=== PATIENT | male | born 1990 | race Caucasian/White ===

== ENCOUNTER 2024-06-10 06:57 | Day surgery (SDC) | payer BC ==
[~2024-06-10 06:57] MED LIST: LIDOCAINE 1% (10MG/ML) FOR IV START INTRADERMA PRN
[2024-06-10] MEDS: IV FLUID CONTINUATION 1,000 ML IV ONE (07:09)
[2024-06-10 07:21] VITALS: TEMP 97.3
[2024-06-10] MEDS: LACTATED RINGERS 1,000 ML IV SCH (07:23)
[2024-06-10] MEDS ORDERED: PROPOFOL 10 MG/ML 20 ML VIAL IV ONE (07:49)
[2024-06-10] MEDS ORDERED: LIDOCAINE 1% INJ 10MG/ML (20 ML MDV) ONE (07:49)
--- NOTE | 2024-06-10 08:25 | P.PCN ---
Date of Procedure: 06/10/24 Procedure(s) Performed: Brief history: Patient is a pleasant 34-year-old white male scheduled for an elective upper endoscopy as well as colonoscopy as a part of evaluation of intermittent dysphagia to solids for the last 2 years duration. He had 2 episodes of food impaction requiring EGD on an emergency basis and the last one was in September 2022. Procedure performed: Esophagogastroduodenoscopy with biopsy Colonoscopy Preoperative diagnosis: Intermittent dysphagia to solids and 2 episodes of food impaction Change in bowel habits Anesthesia: MAC Procedure: After informed consent was obtained from the patient was brought into the endoscopy unit and IV sedation was administered by anesthesia under continuous monitoring. Initially upper endoscopy was done. The Olympus GF 160 video endoscope was inserted inserted into the mouth and esophagus intubated without any difficulty and was gradually advanced into the stomach and duodenum and carefully examined. The bulb and second part of the duodenum appeared normal. The scope was then withdrawn into the stomach adequately insufflated with air and upon careful examination the antrum and body, cardia and fundus appeared normal. The scope was then withdrawn into the esophagus. Hiatal hernia noted. The GE junction was located at 40 cm to the incisors. There were linear erosions or ulcerations in the distal esophagus extending from 30 to 40 cm from the incisors consistent with LA grade B reflux esophagitis. There was an early esophageal stricture at the GE junction noted. The mucosa in the mid esophagus had multiple superficial mucosal rings suspicious for eosinophilic esophagitis and biopsies were done from this area. Rest of the esophagus appeared normal and the patient tolerated procedure well. At this time the patient continued to remain sedation. Initial digital rectal examination was normal. Olympus CF 160 video colonoscope was then inserted into the rectum and gradually advanced to the cecum without any difficulty. Careful examination was performed as the scope was gradually being withdrawn. The prep was excellent. The cecum, ascending colon, transverse colon, descending colon, sigmoid colon and rectum appeared normal. Retroflexion was performed in the rectum and no lesions were noted. Patient tolerated the procedure well. Impression: 1. Upper endoscopy revealed linear erosions with 1 superficial ulceration in the distal esophagus consistent with LA grade D reflux esophagitis and early distal esophageal stricture. Small hiatal hernia and some circumferential mucosal rings in the mid esophagus suspicious for eosinophilic esophagitis s/p multiple biopsies 2. Colonoscopy was within normal limits with no evidence of colorectal neoplasia Recommendations: Findings of this examination were discussed with the patient as well as family. He was advised to increase omeprazole to 20 mg twice daily and follow antireflux measures. Follow-up in the office in 2 to 3 weeks. Recommended repeat screening colonoscopy at age 45
[2024-06-10 08:50] VITALS: BP 104/53; PULSE 67; RESP 17
== END 2024-06-10 09:18 | disposition home or self-care (01) ==
LOC: ORWHC2ENDO 06:57
PROVIDERS: ATTEND Internal Medicine Gastroenterology
DX: K22.10 Ulcer of esophagus without bleeding (principal); K22.2 Esophageal obstruction; K44.9 Diaphragmatic hernia without obstruction or gangrene; R19.4 Change in bowel habit; Z79.899 Other long term (current) drug therapy
CPT/HCPCS: 88305; 88313; 45378; 43239; J2003; J2704